=== PATIENT | male | born 1995 | race Caucasian/White ===

== ENCOUNTER 2024-08-21 12:17 | Emergency (ER) | payer SELFPAY ==
[2024-08-21] MEDS ORDERED: FAMOTIDINE 20 MG/2 ML VIAL IV ONE (12:39)
[2024-08-21] MEDS ORDERED: KETOROLAC 30 MG/ML INJ ONE (12:39)
[2024-08-21] MEDS ORDERED: ONDANSETRON 4 MG/2 ML VIAL ONE (12:39)
[2024-08-21] MEDS ORDERED: NA CHLORIDE 0.9% 1,000 ML ONE (12:39)
--- NOTE | 2024-08-21 13:19 | RAD REPORT ---
EXAM: Abdominal exam Limited ultrasound CLINICAL HISTORY: Abdominal pain COMPARISON: None FINDINGS: A gallstone is not seen. Gallbladder wall not thickened. Biliary tree normal caliber Mildly increased hepatic echotexture may indicate mild fatty infiltration. IMPRESSION: Unremarkable ultrasound gallbladder
[2024-08-21 13:20] LABS: Absolute Eosinophils 0.1 K/uL (0-0.5); Absolute Lymphocytes (CBC) 0.9 K/uL (0.7-4.9); Absolute Monocytes 0.8 K/uL (0.1-1.3); Absolute Neutrophil 11.3 K/uL (1.8-8.0); Basophils % 0.2 % (0-1.3); Eosinophils % 0.5 % (0-4.4); Hematocrit 47.3 % (39.6-49.0); Hemoglobin 16.8 g/dL (13.6-17.9); Lymphocytes % 6.9 % (15.3-44.8); MCH 31.1 pg (27.0-35.0); MCHC 35.6 g/dL (32.0-36.0); MCV 87.3 fL (80-100); MPV 8.7 fL (7.6-11.3); Monocytes % 6.4 % (3.3-12.3); Platelets 212 thou/uL (152-406); RBC Red Blood Cell Count 5.41 M/uL (4.33-5.43); Red Cell Distribution Width 13.1 % (12.1-15.2)
[2024-08-21 13:30] LABS: Albumin 4.2 g/dL (3.4-5.0); Albumin/Globulin Ratio 1.2 (1.1-1.8); Anion Gap 11.8 mEq/L (5.0-15.0); Bilirubin Total 0.8 mg/dL (0.2-1.0); Globulin 3.5 g/dL (2.3-3.5); Potassium 3.8 mEq/L (3.5-5.1); Protein, Total 7.7 g/dL (6.4-8.2)
--- NOTE | 2024-08-21 14:11 | RAD REPORT ---
EXAMINATION: CT ABDOMEN AND PELVIS WITH CONTRAST CLINICAL INDICATION: Abdominal pain TECHNIQUE: CT abdomen and pelvis was performed, after the administration of 100 cc Isovue-300.. Sagit ester and coronal reconstructions were obtained. One or more of the following dose reduction techniques were used: Automated exposure control, adjustment of the mA and kV according to patient si ze, and iterative reconstruction. Unless otherwise specified, incidental findings do not require dedicated imaging follow-up. [id number]. Oral contrast was not given which limits evaluation of bowel and appendix. COMPARISON: .None FINDINGS: Mild fatty liver. The pancreas, adrenals and kidneys appear unremarkable Spleen is mildly enlarged No evidence of diverticulitis. Normal appendix. The wall of multiple loops of jejunum and ileum are thickened. Tiny umbilical hernia : IMPRESSION: Thickening of the wall of multiple loops of small bowel be secondary to inflammation/infection. Mild splenomegaly
--- NOTE | 2024-08-21 14:51 | ER ---
Nurse's Notes [facility] Name: Calvin Cortes Age: 29 yrs Sex: Male : 1995 Arrival Date: 08/21/2024 Time: 12:17 Bed 12 Private MD: Diagnosis: Abdominal pain, Generalized Presentation: 08/21 12:32 Chief complaint: Patient states: Upper abdominal pain and nausea, states that it feels ph like gastritis which he has had in the past. Coronavirus screen: Vaccine status: Patient reports being unvaccinated. Ebola Screen: No symptoms or risks identified at this time. Initial Sepsis Screen: Does the patient meet any 2 criteria? No. Patient's initial sepsis screen is negative. Does the patient have a suspected source of infection? No. Patient's initial sepsis screen is negative. Risk Assessment: Do you want to hurt yourself or someone else? Patient reports no desire to harm self or others. Onset of symptoms was August 21, 2024. 12:32 Method Of Arrival: Ambulatory ph 12:32 Acuity: ANDI 3 ph Triage Assessment: 12:35 General: Appears in no apparent distress. uncomfortable, Behavior is calm, cooperative. ph Pain: Complains of pain in right upper quadrant and left upper quadrant. Neuro: Level of Consciousness is awake, alert, obeys commands, Oriented to person, place, time, situation. Cardiovascular: Capillary refill < 3 seconds in bilateral fingers Patient's skin is warm and dry. Respiratory: Airway is patent Respiratory effort is even, unlabored. GI: Abdomen is non-distended, Bowel sounds present X 4 quads. Reports upper abdominal pain, nausea. : No signs and/or symptoms were reported regarding the genitourinary system. Musculoskeletal: Circulation, motion, and sensation intact. Range of motion: intact in all extremities. Historical: - Allergies: 12:33 No Known Allergies; ph - PSHx: 12:33 None; ph - Immunization history:: Adult Immunizations unknown. - Infectious Disease History:: Denies. - Social history:: Smoking status: Patient denies any tobacco usage or history of. Screenin:36 [facility] ED Fall Risk Assessment (Adult) History of falling in the last 3 months, ph including since admission No falls in past 3 months (0 pts) Confusion or Disorientation No (0 pts) Intoxicated or Sedated No (0 pts) Impaired Gait No (0 pts) Mobility Assist Device Used No (0 pt) Altered Elimination No (0 pt) Score/Fall Risk Level 0 - 2 = Low Risk Oriented to surroundings, Maintained a safe environment, Hourly rounding (assess needs \T\ fall precautionary measures) done. Abuse screen: Denies threats or abuse. Denies injuries from another. Nutritional screening: No deficits noted. Tuberculosis screening: No symptoms or risk factors identified. Assessment: 12:36 General: SEE TRIAGE ASSESSMENT. ph 14:09 Reassessment: Pt in radiology. jb4 Vital Signs: 12:32 BP 131 / 77; Pulse 95; Resp 18; Temp 97.8; Pulse Ox 100% on R/A; Weight 96.62 kg; ph Height 5 ft. 9 in. ; 12:32 Body Mass Index 31.45 (96.62 kg, 175.26 cm) ph ED Course: 12:20 Patient arrived in ED. cj3 12:20 [facility]ill [facility]C [facility] kb 12:20 Bam Portillo MD is Attending Physician. kb 12:33 Triage completed. ph 12:34 Arm band placed on Patient placed in an exam room. ph 12:35 Mahsa Calderon, RN is Primary Nurse. ph 12:37 Patient has correct armband on for positive identification. Bed in low position. Call ph light in reach. Side rails up X 1. 12:59 Initial lab(s) drawn, by me, sent to lab. Inserted saline lock: 22 gauge in left ph antecubital area, using aseptic technique. Blood collected. Flushed with 10 mL NS. 13:00 CBC with Diff Sent. ph 13:00 CMP Sent. ph 13:00 Lipase Sent. ph 13:11 Abdomen Limited US In Process Unspecified. EDMS 14:03 CT Abd/Pelvis - IV Contrast Only In Process Unspecified. EDMS 15:06 No provider procedures requiring assistance completed. IV discontinued, intact, jb4 bleeding controlled, No redness/swelling at site. Pressure dressing applied. Administered Medications: 13:00 Drug: Famotidine IVP 20 mg IVP once; dilute with 10 mL 0.9% NaCl; give over 2 minutes ph Route: IVP; Site: left antecubital; 15:05 Follow up: Response: No adverse reaction jb4 13:00 Drug: TORadol - Ketorolac IVP 15 mg IVP once Route: IVP; Site: left antecubital; ph 15:06 Follow up: Response: No adverse reaction; Marked relief of symptoms jb4 13:00 Drug: Ondansetron IVP 4 mg IVP once; over 2 minutes Route: IVP; Site: left antecubital; ph 15:06 Follow up: Response: No adverse reaction; Marked relief of symptoms jb4 13:00 Drug: NS 0.9% IV 1000 ml IV at 1 bolus Per protocol; to be given as a bolus over 60 ph minutes Route: IV; Rate: 1 bolus; Site: left antecubital; 15:05 Follow up: Response: No adverse reaction; IV Status: Order to discontinue infusion; IV jb4 Intake: 800ml Medication: 12:37 VIS not applicable for this client. ph Intake: 15:05 IV: 800ml; Total: 800ml. jb4 Outcome: 14:50 Discharge ordered by . rashi 15:06 Discharged to home ambulatory, jb4 15:06 Condition: stable 15:06 Discharge instructions given to patient, Instructed on discharge instructions, follow up and referral plans. medication usage, Demonstrated understanding of instructions, follow-up care, medications, Prescriptions given X 3, 15:07 Patient left the ED. jb4 Signatures: Dispatcher [employer] Leigh Robles, JORGE BUNDY-Mahsa Roach, RN RN Brian Zamarripa RN RN jbBettina Fisher 3
--- NOTE | 2024-08-21 14:51 | EDPHYS ---
Physician Documentation [facility] Name: Calvin Cortes Age: 29 yrs Sex: Male : 1995 Arrival Date: 08/21/2024 Time: 12:17 Bed 12 Private MD: ED Physician Bam Portillo HPI: 08/21 15:09 This 29 yrs old Male presents to ER via Ambulatory with complaints of Abdominal Pain - kb MID. 15:09 Patient is a 29-year-old male who presents for upper abdominal pain and nausea that kb started this morning. States it feels similar to gastritis that he had in the past. Denies vomiting, diarrhea, fever.. Historical: - Allergies: 12:33 No Known Allergies; ph - PSHx: 12:33 None; ph - Immunization history:: Adult Immunizations unknown. - Infectious Disease History:: Denies. - Social history:: Smoking status: Patient denies any tobacco usage or history of. ROS: 15:09 Constitutional: As per HPI kb Exam: 15:09 Constitutional: This is a well developed, well nourished patient who is awake, alert, kb and in no acute distress. Head/Face: Normocephalic, atraumatic. ENT: Moist Mucous membranes Cardiovascular: Regular rate Respiratory: Respirations even and unlabored. No increased work of breathing. Talking in full sentences Skin: Warm, dry with normal turgor. Normal color. MS/ Extremity: Pulses equal, no cyanosis. Neurovascular intact. Full, normal range of motion. Neuro: Awake and alert, GCS 15, oriented to person, place, time, and situation. 15:09 Abdomen/GI: Inspection: abdomen appears normal, Bowel sounds: normal, Palpation: soft, in all quadrants, moderate abdominal tenderness, in the right upper quadrant and left upper quadrant, Vital Signs: 12:32 BP 131 / 77; Pulse 95; Resp 18; Temp 97.8; Pulse Ox 100% on R/A; Weight 96.62 kg; ph Height 5 ft. 9 in. ; 12:32 Body Mass Index 31.45 (96.62 kg, 175.26 cm) ph MDM: 12:20 Medical Screening Exam initiated kb 15:09 Differential diagnosis: cholecystitis, Cholelithiasis, gastritis, gastroesophageal kb reflux disease, non-specific abd pain, pancreatitis. Data reviewed: vital signs, nurses notes. Historians other than the Patient: Spouse/Significant Other: Significant other. Counseling: I had a detailed discussion with the patient and/or guardian regarding the historical points, exam findings, and any diagnostic results supporting the discharge/admit diagnosis, lab results, radiology results, the need for outpatient follow up, a family practitioner, to return to the emergency department if symptoms worsen or persist or if there are any questions or concerns that arise at home. 08/21 12:35 Order name: CBC with Diff kb 08/21 12:35 Order name: CMP; Complete Time: 13:32 kb 08/21 12:35 Order name: Lipase; Complete Time: 13:32 kb 08/21 12:35 Order name: Abdomen Limited US; Complete Time: 13:22 kb 08/21 13:32 Order name: CT Abd/Pelvis - IV Contrast Only; Complete Time: 14:12 kb 08/21 12:35 Order name: IV Saline Lock; Complete Time: 13:00 kb 08/21 12:35 Order name: Labs collected and sent; Complete Time: 13:00 kb Administered Medications: 13:00 Drug: Famotidine IVP 20 mg IVP once; dilute with 10 mL 0.9% NaCl; give over 2 minutes ph Route: IVP; Site: left antecubital; 15:05 Follow up: Response: No adverse reaction jb4 13:00 Drug: TORadol - Ketorolac IVP 15 mg IVP once Route: IVP; Site: left antecubital; ph 15:06 Follow up: Response: No adverse reaction; Marked relief of symptoms jb4 13:00 Drug: Ondansetron IVP 4 mg IVP once; over 2 minutes Route: IVP; Site: left antecubital; ph 15:06 Follow up: Response: No adverse reaction; Marked relief of symptoms jb4 13:00 Drug: NS 0.9% IV 1000 ml IV at 1 bolus Per protocol; to be given as a bolus over 60 ph minutes Route: IV; Rate: 1 bolus; Site: left antecubital; 15:05 Follow up: Response: No adverse reaction; IV Status: Order to discontinue infusion; IV jb4 Intake: 800ml Disposition: 18:12 Co-signature as Attending Physician, Bam Portillo MD I reviewed the patient's care rn provided by the Advanced Practice Provider and agree with the diagnosis and treatment plan. Disposition Summary: 08/21/24 14:50 Discharge Ordered Notes: Location: Home kb Condition: Stable kb Diagnosis - Abdominal pain, Generalized kb Followup: kb - With: Emergency Department - When: As needed - Reason: Worsening of condition Followup: kb - With: Private Physician - When: 2 - 3 days - Reason: Recheck today's complaints, Continuance of care, Re-evaluation by your physician Discharge Instructions: - Discharge Summary Sheet kb - Abdominal Pain, Adult, [id number] kb Forms: - Medication Reconciliation Form kb - Antibiotic Education kb - Prescription Opioid Use kb - Patient Portal Instructions kb - Leadership Thank You Letter kb Prescriptions: - Cipro 500 mg Oral Tablet - take 1 tablet ORAL route every 12 hours for 10 days; 20 tablet; Refills: 0, kb Product Selection Permitted - Flagyl 500 mg Oral Tablet - take 1 tablet ORAL route every 8 hours for 10 days; 30 tablet; Refills: 0, kb Product Selection Permitted - Protonix 40 mg Oral Tablet - take 1 tablet ORAL route once daily; 30 tablet; Refills: 0, Product Selection kb Permitted Signatures: Dispatcher [employer] EDMS Leigh Oneill, SANITARIAN INSPECTOR-C SANITARIAN INSPECTOR-Ckb Bam Portillo MD MD rn Mahsa Calderon RN RN Brian Zamarripa RN jb4 Corrections: (The following items were deleted from the chart) 12:36 12:36 CBC+H.LAB.BRZ ordered. EDMS EDMS 12:36 12:36 COMPREHENSIVE METABOLIC PANEL+C.LAB.BRZ ordered. EDMS EDMS 12:36 12:36 LIPASE+C.LAB.BRZ ordered. EDMS EDMS 12:36 12:36 Abdomen Limited+US.RAD.BRZ ordered. EDMS EDMS
[2024-08-21 15:23] VITALS: BP 131/77; TEMP 97.8; O2SAT 100
[2024-08-21 16:08] LABS: Blood Morphology Comment NOT SEEN (NOT SEEN); Platelet Estimate ADEQ; White Blood Cell Scan OK (OK)
== END 2024-08-21 15:07 | disposition home or self-care (01) ==
LOC: ER 12:17
DX: R10.84 Generalized abdominal pain (principal)
CPT/HCPCS: 36415; 74177; 76705; 80053; 83690; 85025; 96361; 96374; 96375; 99284; J2405; J7030; Q9967